=== PATIENT | male | born 1995 | race African-American/Black ===

== ENCOUNTER 2017-02-11 22:35 | Emergency (ER) | payer OTHER, BC ==
[~2017-02-11] VITALS: Ht 182.9 cm; Wt 60.0 kg
[~2017-02-11 22:35] MED LIST: ACET325S8 PO
[2017-02-11] MEDS ORDERED: ACETAMINOPHEN/HYDROcodone 325 MG/5 MG TAB PO ONE (22:45)
[2017-02-11 22:52] VITALS: BP 121/58; PULSE 80; RESP 14; TEMP 98.3; O2SAT 100
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
[2017-02-12] MEDS ORDERED: CYCL1TAB29 PO (01:10)
== END 2017-02-12 01:29 | disposition home or self-care (01) ==
LOC: NEPD 22:35
DX: S09.90XA Unspecified injury of head, initial encounter (principal); V43.52XA Car driver injured in collision with other type car in traffic accident, initial encounter; Y93.89 Activity, other specified; Y92.410 Unspecified street and highway as the place of occurrence of the external cause; Y99.8 Other external cause status
CPT/HCPCS: 70450; 72125

== ENCOUNTER 2017-03-02 04:14 | Emergency (ER) | payer BC, OTHER ==
[~2017-03-02] VITALS: Ht 175.3 cm; Wt 60.0 kg
[~2017-03-02 04:14] MED LIST changes: -ACET325S8 PO; +CYCL1TAB29 PO
[2017-03-02 04:26] VITALS: BP 125/66; PULSE 89; RESP 16; TEMP 98.6; O2SAT 99
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
== END 2017-03-02 05:02 | disposition home or self-care (01) ==
LOC: NEPE 04:14
DX: S41.111A Laceration without foreign body of right upper arm, initial encounter (principal); X58.XXXA Exposure to other specified factors, initial encounter; Y93.9 Activity, unspecified; Y92.9 Unspecified place or not applicable; Y99.9 Unspecified external cause status; S41.112A Laceration without foreign body of left upper arm, initial encounter
CPT/HCPCS: 99283